=== PATIENT | male | born 1990 | race Caucasian/White ===

== ENCOUNTER 2018-03-04 18:05 | Emergency (ER) | payer OTHER ==
[~2018-03-04] VITALS: Ht 177.8 cm; Wt 70.3 kg
[~2018-03-04 18:05] MED LIST: AMBIEN 10 MG TA10 MG PO; AMOXICILLIN500 M1 PO; AMOXICILLIN875 MG PO; ANAPROX DS550 MG PO; ATIVAN1 MG PO; CLONAZEPAM 0.50.5 M1 PO; DOXYCYCLINE 10100 M1 PO; HYDROCODON-ACE1 EAC7 PO; IBUPROFEN 800800 M1 PO; NOHOMEMEDICATIONS; ROBAXIN500 MG PO; ZOLOFT 50 MG TA50 M1 PO
[2018-03-04 19:30] VITALS: BP 112/76
== END 2018-03-04 19:30 | disposition home or self-care (01) ==
LOC: M.ERS 18:05
DX: S61.213A Laceration without foreign body of left middle finger without damage to nail, initial encounter (principal); F41.0 Panic disorder [episodic paroxysmal anxiety]; J45.909 Unspecified asthma, uncomplicated; Z90.49 Acquired absence of other specified parts of digestive tract; W26.8XXA Contact with other sharp object(s), not elsewhere classified, initial encounter; Y93.89 Activity, other specified; Y92.89 Other specified places as the place of occurrence of the external cause; Y99.8 Other external cause status